=== PATIENT | female | born 1985 | race Caucasian/White ===

== ENCOUNTER 2016-10-09 04:15 | Emergency (ER) | payer SELFPAY ==
[~2016-10-09] VITALS: Ht 167.6 cm; Wt 67.0 kg
[~2016-10-09 04:15] MED LIST: ATIVAN0.5 MG PO; ATIVAN1 MG PO; AVENTYL,PAMELOR50 MG PO; BACTRIM 400-801 EACH PO; BUSPAR15 MG PO; CLEOCIN HCL300 MG PO; CLONAZEPAM0.5 MG PO; CYMBALTA60 MG PO; DESYREL100 MG PO; DILAUDID2 MG PO; DOLACET 5/5001 EACH PO; DOXAZOSIN MESYLA4 MG PO; ENDOCET 5-3251 EACH PO; FEOSOL325 MG PO; FLUOXETINE HCL40 MG PO; HALDOL1 MG PO; HALDOL2 MG PO; HYOSCYAMINE0.125 MG PO; Hydrodiuril,Oretic,E PO; KLONOPIN1 MG PO; LITHIUM CARBON300 M1 PO; LITHIUM CARBON300 MG PO; LITHOBID300 MG PO; LORAZEPAM0.5 MG PO; LYRICA50 MG PO; METHADONE 22 MG/1 ML PO; METOPROLOL SUCC50 MG PO; MINIPRESS1 MG PO; MINIPRESS2 MG PO; MINIPRESS5 MG PO; Motrin PO; NAPROSYN500 MG PO; NOHOMEMEDS; NORCO 5/3251 TABLET PO; Niferex-150,Ferrex 1 PO; OPANA ER20 MG PO; OXYCODONE30 MG PO; PEN-VEE K,VEET500 MG PO; POTASSIUM GLUCO2 MEQ PO; PRAZOSIN HCL2 MG PO; PRAZOSIN HCL5 MG PO; PRAZOSIN PO; PRENATAL1 EACH PO; PROZAC10 MG PO; PROZAC20 MG PO; PROZAC20 MG/5 ML PO; PROZAC40 MG PO; QNASL BOTH NARES; QUETIAPINE FUM300 MG PO; QUETIAPINE FUM400 MG PO; REMERON30 M2 PO; ROXICODONE5 MG PO; SEROQUEL300 MG PO; SEROQUEL400 MG PO; SEROQUEL50 MG PO; TRAZODONE HCL100 MG PO; TRAZODONE HCL50 MG PO; TRUVADA1 TABLET PO; ULTRAM50 MG PO; VICODIN,LORT1 TABLET PO; VISTARIL50 MG PO; XANAX0.25 MG PO; XANAX0.5 MG PO; ZIPRASIDONE HCL20 MG PO; ZOLOFT100 M1 PO
[2016-10-09 05:51] LABS: ADD MIUA? YES; BILIRUBIN NEGATIVE; BLOOD SMALL; COLOR STRAW ((YELLOW)); GLUCOSE (STRIP) >=500; KETONES 5; LEUKOCYTES NEGATIVE; NITRITE NEGATIVE; PROTEIN (STRIP) NEGATIVE; SPECIFIC GRAVITY 1.037 (1.000-1.030); UROBILINOGEN 0.2 MG/DL (0.2-1.0)
[2016-10-09 05:55] LABS: BACTERIA NONE SEEN /HPF; EPITHELIAL CELLS RARE /HPF; MUCUS NONE SEEN /LPF; RED BLOOD CELLS 0-5 /HPF (0-5); UCUL ADDED? NO; WHITE BLOOD CELLS 0-5 /HPF (0-5)
[2016-10-09 05:57] LABS: INTERNAL CONTROL VALID? YES
[2016-10-09 07:11] LABS: EOSINOPHIL (%) 0.8 % (0-5); EOSINOPHIL COUNT 0.1 K/uL (0-0.3); HEMATOCRIT 44.1 % (36.0-46.0); IMMATURE GRANULOCYTE (%) 0.3 % (0.0-0.7); INSTRUMENT ABS NEUTROPHIL CT 7.2 K/uL; LYMPHOCYTE COUNT 1.6 K/uL (1.0-2.8); MCH 27.8 PG (29.0-34.0); MCHC 33.6 G/DL (30.0-36.0); MCV 82.9 FL (83-99); MONOCYTE (%) 6.1 % (3-12); MONOCYTE COUNT 0.6 K/uL (0-0.8); NEUTROPHIL (%) 75.8 % (45-76); NEUTROPHIL COUNT 7.2 K/uL (1.8-6.4); PLATELET COUNT 223 K/uL (156-360); RBC DIS.WIDTH-CV 13.3 % (11.8-14.6); RBC DIS.WIDTH-SD 40.1 % (39-53); RED BLOOD COUNT 5.32 M/uL (3.80-5.20); WHITE BLOOD COUNT 9.5 K/uL (4.1-10.2)
[2016-10-09 07:12] LABS: CARBON DIOXIDE (BICARBONATE) 26.7 MEQ/L (20-31)
[2016-10-09 07:52] LABS: ANION GAP 9 MEQ/L (2-14); CHLORIDE 97 MEQ/L (99-109); POTASSIUM 3.9 MEQ/L (3.7-5.4); SAMPLE HEMOLYSIS CHECK 0; SAMPLE ICTERIC CHECK 0; SAMPLE LIPEMIA CHECK 0; SODIUM 131 MEQ/L (136-147)
[2016-10-09 07:57] LABS: GFR ESTIMATE (CALCULATED) > 59 mL/min/; GLUCOSE 346 mg/dL (70-99); UREA NITROGEN (BUN) 5 mg/dL (9-23)
[2016-10-09 08:48] LABS: INFLUENZA A VIRAL ANTIGEN NEGATIVE; INFLUENZA B VIRAL ANTIGEN NEGATIVE
[2016-10-09 09:04] VITALS: BP 129/78
[2016-10-09 13:36] LABS: CHLAMYDIA TRACHOMATIS NEGATIVE; NEISSERIA GONORRHOEAE NEGATIVE
== END 2016-10-09 09:06 | disposition home or self-care (01) ==
LOC: EME 04:15
PROVIDERS: Emergency Medicine
DX: B37.3 Candidiasis of vulva and vagina (principal); E11.65 Type 2 diabetes mellitus with hyperglycemia; B37.0 Candidal stomatitis; M79.7 Fibromyalgia; J45.909 Unspecified asthma, uncomplicated; K21.9 Gastro-esophageal reflux disease without esophagitis; B19.20 Unspecified viral hepatitis C without hepatic coma; Z87.442 Personal history of urinary calculi; Z86.14 Personal history of Methicillin resistant Staphylococcus aureus infection; F17.200 Nicotine dependence, unspecified, uncomplicated; Z79.4 Long term (current) use of insulin
CPT/HCPCS: 80048; 81003; 82803; 84703; 85025; 87210; 87491; 87502; 87591; 99281; 99285; J7030

== ENCOUNTER 2016-11-08 11:27 | Emergency (ER) | payer SELFPAY ==
[~2016-11-08] VITALS: Ht 167.6 cm; Wt 62.1 kg
[2016-11-08] MEDS ORDERED: CLEOCIN300 MG PO (11:43)
[2016-11-08] MEDS ORDERED: DIFLUCAN150 MG PO (11:44)
[2016-11-08 12:05] VITALS: BP 133/95
== END 2016-11-08 12:08 | disposition home or self-care (01) ==
LOC: EME 11:27
DX: L03.317 Cellulitis of buttock (principal); E11.65 Type 2 diabetes mellitus with hyperglycemia; F17.200 Nicotine dependence, unspecified, uncomplicated
CPT/HCPCS: 99281; 99282

== ENCOUNTER 2016-11-09 23:45 | Emergency (ER) | payer SELFPAY ==
[~2016-11-09] VITALS: Ht 167.6 cm; Wt 62.2 kg
[~2016-11-09 23:45] MED LIST changes: +CLEOCIN300 MG PO; +DIFLUCAN150 MG PO
[2016-11-10] MEDS ORDERED: BACTRIM,SEPT1 TABLET PO (00:47)
[2016-11-10 01:04] VITALS: BP 121/82
== END 2016-11-10 01:20 | disposition home or self-care (01) ==
LOC: EME 23:45
DX: L02.31 Cutaneous abscess of buttock (principal); F17.200 Nicotine dependence, unspecified, uncomplicated
CPT/HCPCS: 99281; 99283

== ENCOUNTER 2016-12-09 07:35 | Emergency (ER) | payer SELFPAY ==
[~2016-12-09] VITALS: Ht 167.6 cm; Wt 58.2 kg
[~2016-12-09 07:35] MED LIST changes: +BACTRIM,SEPT1 TABLET PO
[2016-12-09] MEDS ORDERED: NOVOLOG PE100 UNITS/ SC (08:04)
[2016-12-09 08:39] LABS: EOSINOPHIL (%) 1.8 % (0-5); EOSINOPHIL COUNT 0.2 K/uL (0-0.3); HEMATOCRIT 42.4 % (36.0-46.0); IMMATURE GRANULOCYTE (%) 0.3 % (0.0-0.7); INSTRUMENT ABS NEUTROPHIL CT 6.4 K/uL; LYMPHOCYTE COUNT 3.4 K/uL (1.0-2.8); MCH 27.7 PG (29.0-34.0); MCHC 33.5 G/DL (30.0-36.0); MCV 82.8 FL (83-99); MEAN PLAT.VOLUME 9.8 uM^3 (9.5-12.4); MONOCYTE (%) 4.3 % (3-12); MONOCYTE COUNT 0.5 K/uL (0-0.8); NEUTROPHIL (%) 60.7 % (45-76); NEUTROPHIL COUNT 6.4 K/uL (1.8-6.4); PLATELET COUNT 250 K/uL (156-360); RBC DIS.WIDTH-CV 14.8 % (11.8-14.6); RED BLOOD COUNT 5.12 M/uL (3.80-5.20); WHITE BLOOD COUNT 10.6 K/uL (4.1-10.2)
[2016-12-09 09:13] LABS: ANION GAP 9 MEQ/L (2-14); CHLORIDE 102 MEQ/L (99-109); POTASSIUM 4.2 MEQ/L (3.7-5.4); SAMPLE HEMOLYSIS CHECK 0; SAMPLE ICTERIC CHECK 0; SAMPLE LIPEMIA CHECK 0; SODIUM 134 MEQ/L (136-147)
[2016-12-09 09:16] LABS: COCAINE NEGATIVE (150 ng/mL); PHENCYCLIDINE NEGATIVE (25 ng/mL); THC CANNABINOIDS NEGATIVE (50 ng/mL)
[2016-12-09 09:17] LABS: ADD MEDTOX COMMENT Y; AMPHETAMINE NEGATIVE (500 ng/mL); BARBITURATES NEGATIVE (200 ng/mL); BENZODIAZEPINES PRESUMPTIVE POSITIVE (150 ng/mL); INTERNAL CONTROLS VALID? YES; METHADONE NEGATIVE (200 ng/mL); METHAMPHETAMINE NEGATIVE (500 ng/mL); OPIATES (MORPHINE) NEGATIVE (100 ng/mL); OXYCODONE NEGATIVE (100 ng/mL); PROPOXYPHENE NEGATIVE (300 ng/mL); TRICYCLIC ANTIDEPRESSANTS NEGATIVE (300 ng/mL)
[2016-12-09 09:23] LABS: QUANTITATIVE HCG < 4.0 MIU/ML
[2016-12-09 09:33] LABS: ADD MIUA? NO; BILIRUBIN NEGATIVE; BLOOD NEGATIVE; COLOR YELLOW ((YELLOW)); GLUCOSE (STRIP) >=500; KETONES 5; LEUKOCYTES NEGATIVE; NITRITE NEGATIVE; PROTEIN (STRIP) 30; SPECIFIC GRAVITY 1.042 (1.000-1.030); UROBILINOGEN 0.2 MG/DL (0.2-1.0)
[2016-12-09 09:44] LABS: GFR ESTIMATE (CALCULATED) > 59 mL/min/; GLUCOSE 385 mg/dL (70-99); SERUM ETHYL ALCOHOL < 10 mg/dL; UREA NITROGEN (BUN) 10 mg/dL (9-23)
[2016-12-09 10:05] LABS: BENZODIAZEPINES, URINE SCREEN POSITIVE (200 ng/mL)
[2016-12-09] MEDS ORDERED: XANAX0.25 MG PO (11:07)
[2016-12-09 11:16] VITALS: BP 124/95
== END 2016-12-09 11:17 | disposition home or self-care (01) ==
LOC: EME 07:35
PROVIDERS: Emergency Medicine
DX: F41.9 Anxiety disorder, unspecified (principal); E11.65 Type 2 diabetes mellitus with hyperglycemia; Z79.4 Long term (current) use of insulin; Z91.14 Patient's other noncompliance with medication regimen; F43.10 Post-traumatic stress disorder, unspecified; F31.32 Bipolar disorder, current episode depressed, moderate; F60.3 Borderline personality disorder; F17.200 Nicotine dependence, unspecified, uncomplicated
CPT/HCPCS: 80048; 81003; 84702; 84999; 85025; 90839; 99281; 99282; G0480

== ENCOUNTER 2016-12-17 18:38 | Emergency (ER) | payer OTHER ==
[~2016-12-17] VITALS: Ht 167.6 cm; Wt 61.3 kg
[~2016-12-17 18:38] MED LIST changes: +NOVOLOG PE100 UNITS/ SC
[2016-12-17] MEDS ORDERED: MOTRIN600 MG PO (21:03)
[2016-12-17 21:09] VITALS: BP 108/71
== END 2016-12-17 21:10 | disposition home or self-care (01) ==
LOC: EME 18:38
DX: R51 Headache (principal); R11.0 Nausea; H53.149 Visual discomfort, unspecified; M79.7 Fibromyalgia; K21.9 Gastro-esophageal reflux disease without esophagitis; J45.909 Unspecified asthma, uncomplicated; E11.9 Type 2 diabetes mellitus without complications; Z79.4 Long term (current) use of insulin; B19.20 Unspecified viral hepatitis C without hepatic coma; Z86.14 Personal history of Methicillin resistant Staphylococcus aureus infection; Z87.442 Personal history of urinary calculi; F17.210 Nicotine dependence, cigarettes, uncomplicated
CPT/HCPCS: 99281; 99284; J1885

== ENCOUNTER 2017-02-02 17:33 | Emergency (ER) | payer OTHER ==
[~2017-02-02] VITALS: Ht 167.6 cm; Wt 66.3 kg
[~2017-02-02 17:33] MED LIST changes: +MOTRIN600 MG PO
[2017-02-03] MEDS ORDERED: XANAX0.5 MG PO (00:30)
[2017-02-03 00:38] VITALS: BP 110/75
== END 2017-02-03 00:38 | disposition home or self-care (01) ==
LOC: EXP 17:33 → EME 17:33 → EXP 02-03 00:38
DX: F41.9 Anxiety disorder, unspecified (principal); F43.10 Post-traumatic stress disorder, unspecified; Z76.0 Encounter for issue of repeat prescription; E11.9 Type 2 diabetes mellitus without complications; Z79.4 Long term (current) use of insulin; J45.909 Unspecified asthma, uncomplicated; K21.9 Gastro-esophageal reflux disease without esophagitis; F32.9 Major depressive disorder, single episode, unspecified; M79.7 Fibromyalgia; B19.20 Unspecified viral hepatitis C without hepatic coma; Z88.8 Allergy status to other drugs, medicaments and biological substances; F17.200 Nicotine dependence, unspecified, uncomplicated
CPT/HCPCS: 99281; 99283

== ENCOUNTER 2017-02-15 14:37 | Emergency (ER) | payer OTHER ==
[~2017-02-15] VITALS: Ht 167.6 cm; Wt 64.4 kg
[2017-02-15 18:45] VITALS: BP 105/81
== END 2017-02-15 18:46 | disposition home or self-care (01) ==
LOC: EME 14:37
DX: F43.10 Post-traumatic stress disorder, unspecified (principal); F17.200 Nicotine dependence, unspecified, uncomplicated
CPT/HCPCS: 90839; 99281; 99284

== ENCOUNTER 2017-10-27 15:09 | Emergency (ER) | payer OTHER ==
[~2017-10-27] VITALS: Ht 167.6 cm; Wt 72.0 kg
[2017-10-27 16:46] LABS: HEMOGLOBIN 13.1 G/DL (11.9-15.5); MCH 29.9 PG (29.0-34.0); MCHC 34.5 G/DL (30.0-36.0); MCV 86.8 FL (83-99); RBC DIS.WIDTH-SD 41.1 % (39-53); RED BLOOD COUNT 4.38 M/uL (3.80-5.20); WHITE BLOOD COUNT 11.1 K/uL (4.1-10.2)
[2017-10-27 16:52] LABS: ALBUMIN 4.3 g/dL (3.2-4.8)
[2017-10-27 16:53] LABS: CHLORIDE 107 mEq/L (99-109); SODIUM 141 mEq/L (136-147)
[2017-10-27 16:55] LABS: GLUCOSE 112 mg/dL (70-99); TOTAL PROTEIN 7.2 g/dL (6.4-8.3)
[2017-10-27 16:57] LABS: TOTAL BILIRUBIN 0.3 mg/dL (0.0-1.0)
[2017-10-27 16:58] LABS: ALKALINE PHOSPHATASE 119 IU/L (3-129)
[2017-10-27 16:59] LABS: CREATININE 0.8 mg/dL (0.6-1.3); GFR ESTIMATE (CALCULATED) > 59 mL/min/
[2017-10-27 17:00] LABS: AST (GOT) 26 IU/L (2-34); UREA NITROGEN (BUN) 16 mg/dL (9-23)
[2017-10-27 17:01] LABS: ALT (GPT) 46 IU/L (3-49)
[2017-10-27 17:02] LABS: LIPASE 7 U/L (1.0-51.0)
[2017-10-27 17:08] LABS: QUANTITATIVE HCG < 4.0 MIU/ML
[2017-10-27 17:46] LABS: PLAT.SUFFICIENCY ADEQUATE; PLATELET COUNT 265 K/uL (156-360)
[2017-10-27 18:36] LABS: APPEARANCE SL.HAZY ((CLEAR)); BILIRUBIN NEGATIVE; BLOOD MODERATE; COLOR YELLOW ((YELLOW)); GLUCOSE (STRIP) NEGATIVE; KETONES NEGATIVE; LEUKOCYTES NEGATIVE; NITRITE NEGATIVE; PROTEIN (STRIP) 30; SPECIFIC GRAVITY 1.028 (1.000-1.030)
[2017-10-27 18:48] LABS: BACTERIA RARE /HPF; EPITHELIAL CELLS 1+ /HPF; HYALINE CASTS 0-5 /LPF; MUCUS 1+ /LPF; RED BLOOD CELLS 30-40 /HPF (0-5); UCUL ADDED? NO; WHITE BLOOD CELLS 0-5 /HPF (0-5)
[2017-10-27] MEDS ORDERED: ZOFRAN ODT4 MG PO (19:25)
[2017-10-27 19:35] VITALS: BP 115/73
== END 2017-10-27 19:36 | disposition home or self-care (01) ==
LOC: EME 15:09
PROVIDERS: Physician Assistant
DX: R10.9 Unspecified abdominal pain (principal); R11.2 Nausea with vomiting, unspecified; R19.7 Diarrhea, unspecified; Z90.49 Acquired absence of other specified parts of digestive tract; Z87.442 Personal history of urinary calculi; F17.200 Nicotine dependence, unspecified, uncomplicated
CPT/HCPCS: 74176; 80053; 81003; 83690; 84702; 85027; 99281; 99284; J2405; J7030

== ENCOUNTER 2017-10-30 17:18 | Emergency (ER) | payer OTHER ==
[~2017-10-30] VITALS: Ht 167.6 cm; Wt 73.2 kg
[~2017-10-30 17:18] MED LIST changes: +ZOFRAN ODT4 MG PO
[2017-10-30 19:00] LABS: APPEARANCE SL.HAZY ((CLEAR)); BILIRUBIN NEGATIVE; BLOOD NEGATIVE; COLOR AMBER ((YELLOW)); GLUCOSE (STRIP) NEGATIVE; KETONES 5; LEUKOCYTES NEGATIVE; NITRITE NEGATIVE; PROTEIN (STRIP) 30; SPECIFIC GRAVITY 1.031 (1.000-1.030)
[2017-10-30 19:09] LABS: HEMATOCRIT 36.8 % (36.0-46.0); HEMOGLOBIN 12.7 G/DL (11.9-15.5); MCH 30.5 PG (29.0-34.0); MCHC 34.5 G/DL (30.0-36.0); MCV 88.2 FL (83-99); PLATELET COUNT 289 K/uL (156-360); RBC DIS.WIDTH-CV 12.7 % (11.8-14.6); RBC DIS.WIDTH-SD 40.9 % (39-53); RED BLOOD COUNT 4.17 M/uL (3.80-5.20); WHITE BLOOD COUNT 16.7 K/uL (4.1-10.2)
[2017-10-30 19:21] LABS: ALBUMIN 4.3 g/dL (3.2-4.8); CHLORIDE 109 mEq/L (99-109); POTASSIUM 4.4 mEq/L (3.7-5.4); SODIUM 141 mEq/L (136-147)
[2017-10-30 19:24] LABS: GLUCOSE 114 mg/dL (70-99); TOTAL PROTEIN 7.1 g/dL (6.4-8.3)
[2017-10-30 19:26] LABS: TOTAL BILIRUBIN 0.3 mg/dL (0.0-1.0)
[2017-10-30 19:27] LABS: CREATININE 0.7 mg/dL (0.6-1.3); GFR ESTIMATE (CALCULATED) > 59 mL/min/
[2017-10-30 19:28] LABS: ALKALINE PHOSPHATASE 88 IU/L (3-129); UREA NITROGEN (BUN) 10 mg/dL (9-23)
[2017-10-30 19:30] LABS: ALT (GPT) 19 IU/L (3-49); AST (GOT) 14 IU/L (2-34)
[2017-10-30 19:36] LABS: EPITHELIAL CELLS 2+ /HPF; MUCUS 2+ /LPF; RED BLOOD CELLS 0-5 /HPF (0-5); WHITE BLOOD CELLS 0-5 /HPF (0-5)
[2017-10-30 19:36] LABS: QUANTITATIVE HCG < 4.0 MIU/ML
[2017-10-30 19:37] LABS: BACTERIA RARE /HPF; CALCIUM OXALATE CRYSTALS RARE /HPF; UCUL ADDED? NO
[2017-10-30 21:12] VITALS: BP 128/102
[2017-10-30 21:12] LABS: LIPASE 7 U/L (1.0-51.0)
== END 2017-10-30 21:13 | disposition left against medical advice (07) ==
LOC: EME 17:18
DX: R10.9 Unspecified abdominal pain (principal); R11.2 Nausea with vomiting, unspecified; D72.829 Elevated white blood cell count, unspecified; Z87.442 Personal history of urinary calculi; Z90.49 Acquired absence of other specified parts of digestive tract; Z86.14 Personal history of Methicillin resistant Staphylococcus aureus infection; F17.200 Nicotine dependence, unspecified, uncomplicated
CPT/HCPCS: 80053; 81003; 83690; 84702; 85027; 99281; 99285; J1630